=== PATIENT | female | born 1990 | race Caucasian/White ===

== ENCOUNTER 2019-09-05 21:50 | Emergency (ER) | payer OTHER ==
[~2019-09-05] VITALS: Ht 170.2 cm; Wt 104.3 kg
[2019-09-05] MEDS ORDERED: IV NORMAL SALINE 1,000ML 1,000 ML IV SCH (22:45)
--- NOTE | 2019-09-05 23:05 | PHYS DOC ---
Past History Past Medical History: Asthma, Other Additional Past Medical Histor: factor 5 Past Surgical History: Cholecystectomy, , Tonsillectomy, Other Additional Past Surgical Histo: liver biopsy Alcohol Use: None Drug Use: None Adult General Chief Complaint Chief Complaint: VAGINAL BLEEDING HPI HPI Patient is a 28 year old female who presents with complaint of vaginal bleeding. Patient is A2 approximately 12 weeks . [address] with Dr. Nathan for care. States that she had an ultrasound 1 month ago which confirmed intrauterine while at Dr. Nathan's office. States that the bleeding started earlier today. Has been light but continuous since onset. Patient notes that she has had 2 prior pregnancies this year both ending in miscarriage. The patient came to the emergency department with concern that she may be having a miscarriage at this time. Denies any pelvic cramping or pain. Review of Systems Review of Systems Constitutional: Denies fever or chills [] Eyes: Denies change in visual acuity, redness, or eye pain [] HENT: Denies nasal congestion or sore throat [] Respiratory: Denies cough or shortness of breath [] Cardiovascular: Denies chest pain or edema[] GI: Denies abdominal pain, nausea, vomiting, bloody stools or diarrhea [] : Vaginal bleeding[] Musculoskeletal: Denies back pain or joint pain [] Integument: Denies rash or skin lesions [] Neurologic: Denies headache, focal weakness or sensory changes [] All other systems were reviewed and found to be within normal limits, except as documented in this note. Current Medications Current Medications Current Medications Medications (Trade) Dose Ordered Sig/Delma Start Time Stop Time Status Last Admin Dose Admin Sodium Chloride 1,000 ml @ 1,000 mls/hr Q1H 09/05/19 22:45 09/05/19 23:44 Allergies Allergies Allergies Coded Allergies Type Severity Reaction Last Updated Verified azithromycin Allergy Intermediate 04/13/16 Yes erythromycin base Allergy Intermediate 04/13/16 Yes latex Allergy Intermediate 04/13/16 Yes sumatriptan Allergy Intermediate 04/13/16 Yes tramadol Allergy Intermediate 04/13/16 Yes Physical Exam Physical Exam Constitutional: Well developed, well nourished, no acute distress, non-toxic appearance. [] HENT: Normocephalic, atraumatic, bilateral external ears normal, oropharynx moist, no oral exudates, nose normal. [] Eyes: PERRLA, EOMI, conjunctiva normal, no discharge. [] Neck: Normal range of motion, no tenderness, supple, no stridor. [] Cardiovascular:Heart rate regular rhythm, no murmur [] Lungs & Thorax: Bilateral breath sounds clear to auscultation [] Abdomen: Bowel sounds normal, soft, no tenderness, no masses, no pulsatile masses. Pelvic: Normal external exam, small amount of clotted blood in vaginal canal, cervical os closed, no cervical motion tenderness, no midline or adnexal tenderness on bimanual exam.[] Skin: Warm, dry, no erythema, no rash. [] Back: No tenderness, no CVA tenderness. [] Extremities: No tenderness, no cyanosis, no clubbing, ROM intact, no edema. [] Neurologic: Alert and oriented X 3, normal motor function, normal sensory function, no focal deficits noted. [] Current Patient Data Vital Signs Vital Signs Date Time Temp Pulse Resp B/P (MAP) Pulse Ox O2 Delivery O2 Flow Rate FiO2 09/05/19 21:55 99.1 110 18 96 Room Air Lab Results Laboratory Tests Test 09/05/19 23:00 White Blood Count 16.8 x10^3/uL Red Blood Count 4.94 x10^6/uL Hemoglobin 14.6 g/dL Hematocrit 44.2 % Mean Corpuscular Volume 90 fL Mean Corpuscular Hemoglobin 30 pg Mean Corpuscular Hemoglobin Concent 33 g/dL Red Cell Distribution Width 13.9 % Platelet Count 331 x10^3/uL Neutrophils (%) (Auto) 67 % Lymphocytes (%) (Auto) 26 % Monocytes (%) (Auto) 4 % Eosinophils (%) (Auto) 3 % Basophils (%) (Auto) 1 % Neutrophils # (Auto) 11.3 x10^3uL Lymphocytes # (Auto) 4.3 x10^3/uL Monocytes # (Auto) 0.7 x10^3/uL Eosinophils # (Auto) 0.5 x10^3/uL Basophils # (Auto) 0.1 x10^3/uL Segmented Neutrophils % 57 % Band Neutrophils % 1 % Lymphocytes % 36 % Monocytes % 2 % Eosinophils % 4 % Platelet Estimate Adequate Maternal Serum HCG Beta Subunit 586 mIU/mL Sodium Level 140 mmol/L Potassium Level 3.9 mmol/L Chloride Level 103 mmol/L Carbon Dioxide Level 26 mmol/L Anion Gap 11 Blood Urea Nitrogen 7 mg/dL Creatinine 0.6 mg/dL Estimated GFR (Cockcroft-Gault) 118.2 Glucose Level 123 mg/dL Calcium Level 9.7 mg/dL Current Medications Medications (Trade) Dose Ordered Sig/Delma Route PRN Reason Start Time Stop Time Status Last Admin Dose Admin Sodium Chloride 1,000 ml @ 1,000 mls/hr Q1H IV 09/05/19 22:45 09/05/19 23:44 DC 09/05/19 22:45 EKG EKG Not performed[] Radiology/Procedures Radiology/Procedures [place] [id number] IMAGING REPORT Signed PATIENT: REID WILCOX ACCOUNT: [id number] : 1990 LOCATION: ER AGE: 28 SEX: F EXAM STATUS: REG ER ORD. PHYSICIAN: SRI CASTANEDA MD REASON: vaginal bleeding, layton 12 weeks PROCEDURE: PREG 1ST TRIMESTER CLINICAL HISTORY: Vaginal bleeding, approximately 12 weeks COMPARISON: None available. TECHNIQUE: transabdominal and endovaginal sonography was performed FINDINGS: An intrauterine gestational sac is present. An embryo is identified .Cardiac activity is is not seen. The gestational sac is mildly oblong in shape. There is no subchorionic fluid collection. Based on a crown rump length averaging 1.8 cm, the estimated gestational age is 8 weeks, 2 days. Estimated date of delivery is 04/15/2020. The right ovary was not seen. The left ovary measures 3.2 x 2.5 x 1.87 m Fluid is seen within the cervix. No definite free pelvic fluid is identified. IMPRESSION: Although gestational sac with embryo is identified, no definite heart tones are seen, likely demise/miscarriage. This can be correlated with beta hCG and subsequent ultrasound as clinically indicated. Electronically signed by: Kendrick Barillas MD (09/06/2019 1:07 AM) [facility] DICTATED AND SIGNED BY: KENDRICK BARILLAS MD DATE: 09/06/19 0107 CC: SRI CASTANEDA MD; PCP,NO ~ [] Course & Med Decision Making Course & Med Decision Making Pertinent Labs and Imaging studies reviewed. (See chart for details) Patient started on IV fluids in the emergency department. Quantitative hCG found to be abnormally low given estimated gestational age. Ultrasound was ordered which showed pole with no detectable heart beat. Unfortunately this patient appears to have an incomplete miscarriage at this time. Patient is not currently experiencing any significant pain or severe bleeding. At this time patient is appropriate for outpatient follow-up. I sat and spoke with patient regarding diagnosis and need for follow-up with [facility] [facility] for reevaluation in the next 2 days. Patient states that she has an appointment on September [address] Nathan. Advised return to emergency department for any worsening symptoms. Patient was understanding and in agreement with treatment plan. Dragon Disclaimer Dragon Disclaimer This electronic medical record was generated, in whole or in part, using a voice recognition dictation system. Departure Departure: Impression: Primary Impression: Incomplete miscarriage Disposition: HOME, SELF-CARE Condition: STABLE Referrals: PCP,SHAYE (PCP) Patient Instructions: Incomplete Miscarriage Additional Instructions: Follow up with Dr. Nathan in 2 days as scheduled. Return to the emergency department for any worsening symptoms. SRI CASTANEDA MD Sep 05, 2019 23:04
[2019-09-05 23:29] LABS: BASO # 0.1 x10^3/uL (0.0-0.2); BASO % 1 % (0-3); EOS # 0.5 x10^3/uL (0.0-0.7); EOS % 3 % (0-3); HEMATOCRIT 44.2 % (36.0-47.0); HEMOGLOBIN 14.6 g/dL (12.0-15.5); LYMPH # 4.3 x10^3/uL (1.0-4.8); LYMPH % 26 % (24-48); MEAN CORPUSCULAR HEMOGLOBIN 30 pg (25-35); MEAN CORPUSCULAR HGB CONC 33 g/dL (31-37); MEAN CORPUSCULAR VOLUME 90 fL (79-100); MONO # 0.7 x10^3/uL (0.0-1.1); MONO % 4 % (0-9); NEUT # 11.3 x10^3uL (1.8-7.7); NEUT % 67 % (31-73); PLATELET COUNT 331 x10^3/uL (140-400); RED BLOOD COUNT 4.94 x10^6/uL (3.50-5.40); RED CELL DISTRIBUTION WIDTH 13.9 % (11.5-14.5); WHITE BLOOD COUNT 16.8 x10^3/uL (4.0-11.0)
[2019-09-05 23:41] LABS: CALCIUM 9.7 mg/dL (8.5-10.1); CREATININE 0.6 mg/dL (0.6-1.0); GFR 118.2; POTASSIUM 3.9 mmol/L (3.5-5.1)
[2019-09-05 23:55] LABS: % BANDS 1 % (0-9); % EOS 4 % (0-5); % LYMPHS 36 % (24-48); % MONOS 2 % (0-10); % SEGS 57 % (35-66); PLT ESTIMATE ADEQUATE (ADEQUATE)
--- NOTE | 2019-09-06 01:10 | RAD ---
CLINICAL HISTORY: Vaginal bleeding, approximately 12 weeks COMPARISON: None available. TECHNIQUE: transabdominal and endovaginal sonography was performed FINDINGS: An intrauterine gestational sac is present. An embryo is identified .Cardiac activity is is not seen. The gestational sac is mildly oblong in shape. There is no subchorionic fluid collection. Based on a crown rump length averaging 1.8 cm, the estimated gestational age is 8 weeks, 2 days. Estimated date of delivery is 04/15/2020. The right ovary was not seen. The left ovary measures 3.2 x 2.5 x 1.87 m Fluid is seen within the cervix. No definite free pelvic fluid is identified. IMPRESSION: Although gestational sac with embryo is identified, no definite heart tones are seen, likely demise/miscarriage. This can be correlated with beta hCG and subsequent ultrasound as clinically indicated. Electronically signed by: Kendrick Light MD (09/06/2019 1:07 AM) [facility]
[2019-09-06 02:00] VITALS: BP 149/91
[2019-09-07 19:07] LABS: CHLAMYDIA PROBE Negative (Negative)
== END 2019-09-06 02:00 | disposition home or self-care (01) ==
LOC: MERGE 21:50 → ER 21:50
DX: O03.4 Incomplete spontaneous abortion without complication (principal); O99.512 Diseases of the respiratory system complicating pregnancy, second trimester; J45.909 Unspecified asthma, uncomplicated; Z90.49 Acquired absence of other specified parts of digestive tract; Z98.890 Other specified postprocedural states; Z88.1 Allergy status to other antibiotic agents; Z91.040 Latex allergy status; Z88.6 Allergy status to analgesic agent; Z88.8 Allergy status to other drugs, medicaments and biological substances
CPT/HCPCS: 36415; 76801; 80048; 84702; 85007; 85025; 86850; 86900; 86901; 87491; 87591; 99285; Q0111; J7030